=== PATIENT | female | born 1930 | race Caucasian/White ===

== ENCOUNTER → 2016-09-28 | Outpatient (CLI) | payer OTHER | LOC: BHCLAF 15:15 | PROVIDERS: ATTEND Internal Medicine Cardiovascular Disease | DX: I73.9 Peripheral vascular disease, unspecified (principal); I10 Essential (primary) hypertension; E78.5 Hyperlipidemia, unspecified | CPT/HCPCS: 93005-PO ==

== ENCOUNTER → 2016-10-18 | Outpatient (CLI) | payer OTHER | LOC: BHCLAF 14:45 | PROVIDERS: ATTEND Internal Medicine Cardiovascular Disease | DX: I10 Essential (primary) hypertension (principal) | CPT/HCPCS: 93306-PO ==

== ENCOUNTER → 2017-01-05 | Outpatient (CLI) | payer OTHER ==
[~2017-01-05] MED LIST: IOPAMIDOL (ISOVUE-300) 100 ML BTL ONE
== END ==
LOC: CIMAGING 10:19
PROVIDERS: ATTEND Family Medicine
DX: R10.84 Generalized abdominal pain (principal); I25.10 Atherosclerotic heart disease of native coronary artery without angina pectoris; Z85.048 Personal history of other malignant neoplasm of rectum, rectosigmoid junction, and anus; Z85.3 Personal history of malignant neoplasm of breast
CPT/HCPCS: 74177; Q9967

== ENCOUNTER 2017-06-06 | Inpatient (IN) | payer OTHER ==
--- NOTE | 2017-06-06 00:31 | EDPHY ---
H & P Time Seen by Provider: 06/06/17 00:08 HPI/ROS: CHIEF COMPLAINT: Bloody stool just prior to admission HISTORY OF PRESENT ILLNESS: 86-year-old female with prior history of carotid ischemia with a carotid endarterectomy in 2012. At that time she had a normal echocardiogram with a hyperdynamic heart with an ejection fraction of 74% as well as EKG evidence of old prior inferior LA with LVH. Today she felt well, she went to jainism. She did some shopping thereafter. However, at around 3:00 p.m. she started having a sense of some chilling and weakness. She went to have a bowel movement and had to strain a lot. Subsequently after passing some hard stool she noticed a moderate to large amount of liquid stool, though this was nonbloody, nor was there any blood on the tissue. The rest of the evening she felt okay though that somewhat run down. In fact she went to take a nap after the initial bowel movement at 3:00 p.m.. Just an hour prior to admission she went to the bathroom to passing gas or stool , she was not sure. She noted some blood in the stool of a bright red nature. Thus she comes in. At no point has there been any abdominal pain. While she did have some chilling earlier she also noted a sense of lightheadedness both after jainism as well as during the episode of the passage of hard stool and straining. As to the diarrhea, she does not have a history of recent antibiotic use, travel , or prior bacterial dysentery. There has been no bad food or water sources or known exposure. There is some question as to whether she uses magnesium containing material for constipation. Evidently per her daughter she was on MiraLax, once but is no longer. REVIEW OF SYSTEMS: Constitutional: No fever, but she did have some chills Eyes: No discharge No diplopia, no pallor ENT: No sore throat. Cardiovascular: No chest pain, no palpitations. Respiratory: No cough, shortness of breath, or wheezing. Gastrointestinal: No nausea vomiting. No abdominal pain. Genitourinary: No hematuria or frequency. Musculoskeletal: No back pain. Skin: No rashes. Neurological: No headache. 10 point ROS otherwise negative Source: Patient Exam Limitations: No limitations - Medical/Surgical History Hx Asthma: No Hx Chronic Respiratory Disease: Yes Hx Diabetes: No Hx Cardiac Disease: No Hx Renal Disease: No Hx Cirrhosis: No Hx Alcoholism: No Hx HIV/AIDS: No Hx Splenectomy or Spleen Trauma: No Other PMH: HTN, High Chol, GERD, s/p CEA, colon cancer - Family History Significant Family History: No pertinent family hx - Social History Smoking Status: Never smoked Alcohol Use: Other (Former drinker to moderate degree.) Drug Use: None - Physical Exam Exam: General Appearance: Alert, no distress. Afebrile. Normal phonation. No respiratory distress. Vague historian often corrected by her daughter. Eyes: Pupils equal and round no pallor or injection. No icterus ENT, Mouth: Mucous membranes moist Pharynx without erythema or exudate. TM Clear. Neck: No adenopathy. Supple. No JVD. Trachea in midline. Respiratory: There are no retractions, lungs are clear to auscultation. Chest wall: Nontender to palpation. No crepitus. Cardiovascular: Regular rate and rhythm, Gr 2/6 mumur heard at apex. Abdomen: Soft and nontender, no masses, bowel sounds normal. Femoral pulses equal. Neurological: Ox3. No motor weakness. Sensation intact. Gait nl. Romberg's negative. Normal [id number]. No nystagmus. Cranial nerves 2-12 are intact Rectal: There is red flecks of material all over her Depends. There are no signs of external hemorrhoids or tears. Finger returns with the same drea of bloody, pink material as seen on the Depends. Skin: Warm and dry, no rashes. Musculoskeletal: No joint swelling. Extremities: No edema. Homans sign negative. No cords. Psychiatric: Normal affect. Patient is oriented X 3. There is no agitation Constitutional: Initial Vital Signs Temperature (C) 36.8 C 06/06/17 00:07 Heart Rate 56 L 06/06/17 00:07 Respiratory Rate 18 06/06/17 00:07 Blood Pressure 156/82 H 06/06/17 00:07 O2 Sat (%) 96 06/06/17 00:07 O2 Delivery Mode Room Air Allergies/Adverse Reactions: No Known Allergies Allergy (Verified 08/30/12 22:33) Home Medications: Medication Instructions Recorded Aspirin EC [Aspirin EC 81 mg (OTC)] 81 mg PO DAILY 08/25/12 Atorvastatin Calcium [Lipitor 20 20 mg PO DAILY@199908/25/12 mg (RX)] C/E/Zn/Cu/OM3/DHA/EPA/LUT/ZEAX 1 each PO BIDMEAL 08/25/12 [Preservision Areds 2 Softgel] Cholecalciferol Vit D3 [Vitamin D3 1,000 units PO DAILY@1200 08/25/12 1000 units (OTC)] Metoprolol Succinate 100 mg PO DAILY 08/25/12 Omeprazole [Prilosec 20 mg] 20 mg PO DAILY 08/25/12 Pharmacist Completed 08-25-12 08/25/12 Zolpidem Tartrate [Ambien 10 mg] 10 mg PO HS PRN 08/25/12 amLODIPine BESYLATE/BENAZEPRIL 1 each PO DAILY 08/25/12 [Amlodipine-Benazepril 10-20 mg] Azithromycin [Zithromax] 250 mg PO DAILY #4 tab 08/30/12 Ipratropium/Albuterol [Duoneb (RX)] 3 ml IH Q6 PRN #25 deyvial 08/30/12 Medical Decision Making - Diagnostics EKG Interpretation: EKG: Interpreted by me contemporaneously, see trace master for my interpretation. Rhythm: Normal sinus rhythm. Heart rate 58 QTc 504 QRS: LBBB STT segment: normal T Waves: Normal Q waves none Summary: Left bundle-branch block. When compared to old EKG this is new however old EKG is from July 2012. At that time it is noted that she had an evidence of an inferior infarct with LVH Imaging Results: Chest x-ray: Two view chest. Interpreted by me, contemporaneously. Films viewed by me on the PACS system. Normal mediastinum. Normal lung youssef, without pneumonia or without effusions. Normal senescent chest. Imaging: I viewed and interpreted images myself Procedures: Anoscopy: Performed by me. Indication: Diarrhea stool with blood Scope passed, patient tolerated adequately as she has a somewhat tight anal sphincter. No complications Findings: Shows liquid brown/red material coming from above the scope with no signs of external hemorrhoidal or anal irritation to explain the bleeding. ED Course/Re-evaluation: The patient remained hemodynamically stable here. Vital signs are stable Orthostatics stable showing no decrease in blood pressure to standing She had no more stooling well here Abdominal exam remained benign Case was discussed with the hospitalist on-call at [facility]. They requested a call placed to Gastroenterology. I discussed the case with Dr. Kwok regarding the consideration of gastroenterology consult with colonoscopy in the morning Laboratory evaluation reveals: Stable H&H Stable at lytes Elevated BUN compared to baseline. This likely represents dehydration thus patient was started on IV fluids for volume repletion Detectable, though not elevated, troponin Lactic acid normal Chest x-ray showed no signs of pneumonia. EKG showed left bundle branch block without ischemia. NSR. Case discussed with the family, daughter and patient at length regarding infectious versus ischemic colitis Differential Diagnosis: Differential diagnosis includes, but is not limited to: Gastroenteritis, dehydration, diverticulitis, gastritis, mesenteric adenitis, food poisoning, bacterial dysentery, hemorrhoidal bleeding, diverticular bleeding, pneumonia, influenza, ischemic colitis. - Data Points Laboratory Results: Laboratory Results 06/06/17 00:40 06/06/17 00:40 06/06/17 06/06/17 06/06/17 01:00 00:40 00:40 WBC 6.43 10^3/uL 10^3/uL (3.80-9.50) RBC 3.87 10^6/uL L 10^6/uL (4.18-5.33) Hgb 11.6 g/dL L g/dL (12.6-16.3) Hct 34.9 % L % (38.0-47.0) MCV 90.2 fL fL (81.5-99.8) MCH 30.0 pg pg (27.9-34.1) MCHC 33.2 g/dL g/dL (32.4-36.7) RDW 13.2 % % (11.5-15.2) Plt Count 153 10^3/uL 10^3/uL (150-400) MPV 9.5 fL fL (8.7-11.7) Neut % (Auto) 73.2 % % (39.3-74.2) Lymph % (Auto) 17.0 % % (15.0-45.0) [place] % (Auto) 7.8 % % (4.5-13.0) Eos % (Auto) 1.2 % % (0.6-7.6) Baso % (Auto) 0.3 % % (0.3-1.7) Nucleat RBC Rel Count 0.0 % % (0.0-0.2) Absolute Neuts (auto) 4.71 10^3/uL 10^3/uL (1.70-6.50) Absolute Lymphs (auto) 1.09 10^3/uL 10^3/uL (1.00-3.00) Absolute Monos (auto) 0.50 10^3/uL 10^3/uL (0.30-0.80) Absolute Eos (auto) 0.08 10^3/uL 10^3/uL (0.03-0.40) Absolute Basos (auto) 0.02 10^3/uL 10^3/uL (0.02-0.10) Absolute Nucleated RBC 0.00 10^3/uL 10^3/uL (0-0.01) Immature Gran % 0.5 % % (0.0-1.1) Immature Gran # 0.03 10^3/uL 10^3/uL (0.00-0.10) VBG Lactic Acid Sodium 145 mEq/L mEq/L (135-145) Potassium 3.7 mEq/L mEq/L (3.5-5.2) Chloride 104 mEq/L mEq/L (97-110) Carbon Dioxide 24 mEq/l mEq/l (22-31) Anion Gap 17 mEq/L H mEq/L (8-16) BUN 26 mg/dL H mg/dL (7-23) Creatinine 1.0 mg/dL mg/dL (0.6-1.0) Estimated GFR 53 Glucose 94 mg/dL mg/dL (70-100) Calcium 9.3 mg/dL mg/dL (8.5-10.4) Magnesium 2.1 mg/dL mg/dL (1.6-2.3) Troponin I 0.017 ng/mL ng/mL (0.000-0.034) Stool Occult Bld Scrn POSITIVE H (NEGATIVE) 06/06/17 00:40 WBC RBC Hgb Hct MCV MCH MCHC RDW Plt Count MPV Neut % (Auto) Lymph % (Auto) [place] % (Auto) Eos % (Auto) Baso % (Auto) Nucleat RBC Rel Count Absolute Neuts (auto) Absolute Lymphs (auto) Absolute Monos (auto) Absolute Eos (auto) Absolute Basos (auto) Absolute Nucleated RBC Immature Gran % Immature Gran # VBG Lactic Acid 1.3 mmol/L mmol/L (0.7-2.1) Sodium Potassium Chloride Carbon Dioxide Anion Gap BUN Creatinine Estimated GFR Glucose Calcium Magnesium Troponin I Stool Occult Bld Scrn Medications Given: Discontinued Medications Sodium Chloride (Ns) 1,000 mls @ 250 mls/hr IV ONCE ONE PRN Reason: Protocol Stop: 06/06/17 05:22 Last Admin: 06/06/17 01:24 Dose: 1,000 mls Departure - Departure Disposition: [facility] Inpatient Acute Clinical Impression: GI bleeding Qualifiers: GI bleed type/associated pathology: unspecified gastrointestinal hemorrhage type Qualified Code(s): K92.2 - Gastrointestinal hemorrhage, unspecified Diarrhea Qualifiers: Diarrhea type: unspecified type Qualified Code(s): R19.7 - Diarrhea, unspecified Condition: Fair
--- NOTE | 2017-06-06 00:41 | CPEKG ---
Heart Rate: 58 RR Interval: 1034 P-R Interval: 160 QRSD Interval: 138 QT Interval: 512 QTC Interval: 504 P [place]: 58 QRS [place]: -49 T Wave [place]: 86 EKG Severity - ABNORMAL ECG - EKG Impression: SINUS RHYTHM EKG Impression: LEFT BUNDLE BRANCH BLOCK EKG Impression: When compared to old EKG from July of 2012, the left bundle branch is new. On EKG Impression: that old prior EKG there was evidence of old inferior LA as well as left EKG Impression: ventricular hypertrophy Electronically Signed By: Hector Zabala 06-Jun-2017 01:51:19
[2017-06-06 00:57] LABS: PLATELET COUNT 153 10^3/uL (150-400)
[2017-06-06] MEDS ORDERED: NS 1,000 ML IV ONE (01:23)
[2017-06-06] MEDS ORDERED: ACETAMINOPHEN 325 MG TAB PO PRN (01:25)
[2017-06-06] MEDS ORDERED: ONDANSETRON 4 MG/2 ML VIAL IVP PRN (01:25)
[2017-06-06] MEDS ORDERED: ONDANSETRON DISINTEGRATING 4 MG TAB PO PRN (01:25)
[2017-06-06] MEDS ORDERED: NS 1,000 ML IV SCH (01:30)
--- NOTE | 2017-06-06 02:25 | PDGENHP ---
History and Physical - Chief Complaint BRBPR - History of Present Illness 86 yo F w/ hx of carotid stenosis s/p CEA, HTN, colon and breast cancer presents with BRBPR. Patient was in usual state of health until yesterday afternoon when she had a large volume liquid stool. This episode was nonbloody. Then last evening she used the bathroom again and noted a moderate amount of rigo blood so she came to the ED. She denies prior CDiff infection, recent travel, or recent antibiotic use. She does have a prior hx of colon cancer. History Information - Allergies/Home Medication List Allergies/Adverse Reactions: No Known Allergies Allergy (Verified 08/30/12 22:33) Home Medications: Aspirin EC [Aspirin EC 81 mg (OTC)] 81 mg PO DAILY 08/25/12 [Last Taken 08/24/12 ] Atorvastatin Calcium [Lipitor 20 mg (RX)] 20 mg PO DAILY@199908/25/12 [Last Taken 08/24/12] C/E/Zn/Cu/OM3/DHA/EPA/LUT/ZEAX [Preservision Areds 2 Softgel] 1 each PO BIDMEAL 08/25/12 [Last Taken 08/24/12] Cholecalciferol Vit D3 [Vitamin D3 1000 units (OTC)] 1,000 units PO DAILY@1200 08/25/12 [Last Taken 08/24/12] Metoprolol Succinate 100 mg PO DAILY 08/25/12 [Last Taken 08/24/12] Omeprazole [Prilosec 20 mg] 20 mg PO DAILY 08/25/12 [Last Taken 08/24/12] Pharmacist Completed 08-25-12 08/25/12 [Last Taken Unknown] Zolpidem Tartrate [Ambien 10 mg] 10 mg PO HS PRN 08/25/12 [Last Taken 08/24/12] amLODIPine BESYLATE/BENAZEPRIL [Amlodipine-Benazepril 10-20 mg] 1 each PO DAILY 08/25/12 [Last Taken 08/24/12] I have personally reviewed and updated: family history, medical history - Past Medical History cancer (Breast and colon), hypertension - Surgical History Additional surgical history: R CEA - Family History Additional family history: Asked, denies - Social History Smoking Status: Never smoked Alcohol Use: Other (Former drinker to moderate degree.) Drug Use: None Review of Systems Review of Systems: ROS: 10pt was reviewed & negative except for what was stated in HPI & below Physical Exam Physical Exam: Temp Pulse Resp BP Pulse Ox 36.7 C 60 16 151/74 H 95 06/06/17 02:00 18 02:00 06/06/17 02:00 06/06/17 02:00 06/06/17 02:00 Constitutional: no apparent distress, not in pain Eyes: PERRL, EOMI Ears, Nose, Mouth, Throat: moist mucous membranes, no oral mucosal ulcers Cardiovascular: regular rate and rhythym, systolic murmur Respiratory: no respiratory distress, clear to auscultation Gastrointestinal: normoactive bowel sounds, soft, non-tender abdomen Skin: warm, normal color Musculoskeletal: full muscle strength, no muscle tenderness Neurologic: AAOx3, CN II-XII Intact Psychiatric: interacting appropriately, not anxious Lab Data & Imaging Review 06/06/17 00:40 06/06/17 00:40 WBC 6.43 10^3/uL (3.80-9.50) 06/06/17 00:40 RBC 3.87 10^6/uL (4.18-5.33) L 06/06/17 00:40 Hgb 11.6 g/dL (12.6-16.3) L 06/06/17 00:40 Hct 34.9 % (38.0-47.0) L 06/06/17 00:40 MCV 90.2 fL (81.5-99.8) 06/06/17 00:40 MCH 30.0 pg (27.9-34.1) 06/06/17 00:40 MCHC 33.2 g/dL (32.4-36.7) 06/06/17 00:40 RDW 13.2 % (11.5-15.2) 06/06/17 00:40 Plt Count 153 10^3/uL (150-400) 06/06/17 00:40 MPV 9.5 fL (8.7-11.7) 06/06/17 00:40 Neut % (Auto) 73.2 % (39.3-74.2) 06/06/17 00:40 Lymph % (Auto) 17.0 % (15.0-45.0) 06/06/17 00:40 [place] % (Auto) 7.8 % (4.5-13.0) 06/06/17 00:40 Eos % (Auto) 1.2 % (0.6-7.6) 06/06/17 00:40 Baso % (Auto) 0.3 % (0.3-1.7) 06/06/17 00:40 Nucleat RBC Rel Count 0.0 % (0.0-0.2) 06/06/17 00:40 Absolute Neuts (auto) 4.71 10^3/uL (1.70-6.50) 06/06/17 00:40 Absolute Lymphs (auto) 1.09 10^3/uL (1.00-3.00) 06/06/17 00:40 Absolute Monos (auto) 0.50 10^3/uL (0.30-0.80) 06/06/17 00:40 Absolute Eos (auto) 0.08 10^3/uL (0.03-0.40) 06/06/17 00:40 Absolute Basos (auto) 0.02 10^3/uL (0.02-0.10) 06/06/17 00:40 Absolute Nucleated RBC 0.00 10^3/uL (0-0.01) 06/06/17 00:40 Immature Gran % 0.5 % (0.0-1.1) 06/06/17 00:40 Immature Gran # 0.03 10^3/uL (0.00-0.10) 06/06/17 00:40 VBG Lactic Acid 1.3 mmol/L (0.7-2.1) 06/06/17 00:40 Sodium 145 mEq/L (135-145) 06/06/17 00:40 Potassium 3.7 mEq/L (3.5-5.2) 06/06/17 00:40 Chloride 104 mEq/L (97-110) 06/06/17 00:40 Carbon Dioxide 24 mEq/l (22-31) 06/06/17 00:40 Anion Gap 17 mEq/L (8-16) H 06/06/17 00:40 BUN 26 mg/dL (7-23) H 06/06/17 00:40 Creatinine 1.0 mg/dL (0.6-1.0) 06/06/17 00:40 Estimated GFR 53 06/06/17 00:40 Glucose 94 mg/dL (70-100) 06/06/17 00:40 Calcium 9.3 mg/dL (8.5-10.4) 06/06/17 00:40 Magnesium 2.1 mg/dL (1.6-2.3) 06/06/17 00:40 Troponin I 0.017 ng/mL (0.000-0.034) 06/06/17 00:40 Stool Occult Bld Scrn POSITIVE (NEGATIVE) H 06/06/17 01:00 Assessment & Plan Assessment: 86 yo F w/ hx of carotid stenosis s/p R CEA, HTN, as well as breast and colon cancer presents with loose stool and hematochezia. Plan: 1. GIB - Suspect lower etiology noting bright red blood per rectum. Patient is hemodynamically stable with Hgb near her known baseline. She does have a prior hx of colon CA. Abdominal CT in December of 2016 was unremarkable with no mention of mass or diverticulosis. Patient reports normal colonoscopy 2 or 3 years ago performed for colon CA surveillance. - Admit for observation - Monitor CBC - NPO, mIVF - GI consult for possible colonoscopy 2. Loose stool - Had one episode of large volume loose stool prior to admission. She denies recent travel, antibiotic use, or prior hx of C. Diff. - GI PCR panel 3. Hx carotid stenosis - s/p R CEA 4. Hx of colon cancer - Patient thinks this was maybe 15 years ago. She states she received surgery and chemotherapy. 5. Hx of breast cancer - She states this was treated with chemotherapy. 6. HTN - On lisinopril, carvedilol, and amlodipine per Dr. Mathis' progress note last November. Diet - NPO Code - Full Ppx - SCDs Dispo - Admit under observation status
[2017-06-06 06:07] LABS: PLATELET COUNT 138 10^3/uL (150-400)
[2017-06-06] MEDS ORDERED: PEG 3350/NA SULF,BICARB,CL/KCL (GAVILYTE-G) 4000 ML BTL PO ONE (10:05)
--- NOTE | 2017-06-06 10:08 | SOAPPROG ---
DANIE Progress Note Assessment/Plan: Assessment:Plan: full dictation to follow 86 y/o with distant hx rectal cancer, last colon 2013 -- no tics on scopes, few small polyps removed 2012 hard difficult evacuation followed by rectal bleeding , no sig drop in HB, prob distal rectal source - hemorrhoids, mucosal tear she wants scope prior to going home will prep and scope later today or tomorrow 06/06/17 10:06 Objective: Vital Signs Temp Pulse Resp BP Pulse Ox 36.6 C 61 16 171/79 H 91 L 06/06/17 08:00 06/06/17 08:00 06/06/17 08:00 06/06/17 08:00 06/06/17 08:00 Laboratory Results 06/06/17 04:32 06/06/17 04:32 06/05/17 06/06/17 06/07/17 05:59 05:59 05:59 Intake Total 200 Output Total 300 Balance -100 ICD10 Worksheet Patient Problems: Problems Problem Status Onset Diarrhea Acute GI bleeding Acute Transient ischemic attack Active
--- NOTE | 2017-06-06 11:29 | ASMTCMCOM ---
CM Note CM Note Notes: Patient admitted after episode of hematochezia. She has a history of colon cancer. GI will scope later today or tomorrow. Patient lives independently with her and has a supportive daughter. No therapies have been ordered, so I anticipate an independent discharge home. CM available if any needs arise. Current CM Discharge plan: home with family Date Signed: 06/06/2017 11:28 AM Electronically Signed By:Dana Conley RN
--- NOTE | 2017-06-06 17:12 | HOSPPROG ---
Hospitalist Progress Note Assessment/Plan: # GIB - Suspect lower etiology noting bright red blood per rectum. Patient is hemodynamically stable with Hgb near her known baseline. She does have a prior hx of colon CA. Abdominal CT (personally reviewed and interpreted)12/2016 no mass or diverticulosis. - discuss with Gastroenterology they will prep and scoped today - Monitor CBC - NPO, mIVF # Loose stool - Had one episode of large volume loose stool prior to admission. - GI PCR panel # Hx carotid stenosis - s/p R CEA # Hx of colon cancer - Patient thinks this was maybe 15 years ago. She states she received surgery and chemotherapy. # Hx of breast cancer - She states this was treated with chemotherapy. # HTN - holding antihypertensives currently in the setting of GI bleed Diet - NPO Code - Full Ppx - SCDs Dispo - Admit under observation status I have discussed the case with Dr. Kwok from Gastroenterology plan to prep in scope the patient this evening Subjective: With bright red blood per rectum this morning Objective: Vital Signs Temp Pulse Resp BP Pulse Ox 35.9 C L 59 L 16 180/80 H 98 06/06/17 16:07 06/06/17 16:07 06/06/17 16:07 06/06/17 16:07 06/06/17 16:07 Microbiology 06/06/17 11:00 Gastrointestinal Tract Panel (PCR) - Final Stool No Organism Detected Laboratory Results 06/06/17 04:32 06/06/17 04:32 06/05/17 06/06/17 06/07/17 05:59 05:59 05:59 Intake Total 200 1000 Output Total 300 Balance -100 1000 - Physical Exam Constitutional: no apparent distress Eyes: anicteric sclera Ears, Nose, Mouth, Throat: moist mucous membranes Cardiovascular: regular rate and rhythym Respiratory: no respiratory distress Gastrointestinal: normoactive bowel sounds Genitourinary: no bladder fullness Skin: warm Musculoskeletal: No asymmetric calves Neurologic: AAOx3 Psychiatric: interacting appropriately Lymph, Heme, Immunologic: no cervical LAD ICD10 Worksheet Patient Problems: Problems Problem Status Onset Diarrhea Acute GI bleeding Acute Transient ischemic attack Active
[2017-06-06] MEDS ORDERED: MIDAZOLAM 2 MG/2 ML VIAL ONE ×2 (17:34→17:35)
[2017-06-06] MEDS ORDERED: fentaNYL 100 MCG/2 ML INJ ONE (17:35)
[2017-06-06] MEDS ORDERED: EPINEPHrine 1 MG/10 ML SYR IVP ONE (17:44)
--- NOTE | 2017-06-06 17:54 | PDPROPOC ---
Sedation Plan of Care Sedation Plan of Care: vital signs stable, mental status noted, patient educated of risks, benefits, alternatives, patient can tolerate sedation ASA Classification: ASA 2 Planned drugs: fentanyl, midazolam Mallampati Score: Class 2 Mallampati Reference Image: 2 Patient passed 3-3-2 rule?: Yes
--- NOTE | 2017-06-06 18:33 | GIREPORT ---
[facility] Surgical Services - Endoscopy Department Patient Name: Summer De Leon Procedure Date: 06/06/2017 5:23 PM Patient Type: Inpatient Attending MD/ ER Physician: Roc Harmon Procedure: Colonoscopy Indications: Hematochezia, Personal history of malignant rectal neoplasm Providers: Thai Kwok MD Referring MD: Harika Schmitt MD Medicines: Fentanyl 50 micrograms IV, Midazolam 3 mg IV Complications: No immediate complications. Estimated blood loss: Minimal. Description of Procedure: After obtaining informed consent, the scope was passed under direct vis ion. Throughout the procedure, the patient's blood pressure, pulse, and oxyg en saturations were monitored continuously. The Colonoscope with irrigatio n channel was introduced through the anus and advanced to the terminal il eum, with identification of the appendiceal orifice and IC valve. The colono scopy was performed without difficulty. The patient tolerated the procedure w ell. The quality of the bowel preparation was good. Findings: The digital rectal exam was normal. The terminal ileum appeared normal. A 5 mm polyp was found in the cecum. The polyp was semi-sessile. The po lyp was removed with a cold snare. Resection and retrieval were complete. Estimated blood loss was minimal. A scattered and segmental area of moderately altered vascular, congeste d, erythematous, eroded, inflamed and ulcerated mucosa was found in the si gmoid colon and in the descending colon. Biopsies were taken with a cold [facility] eps for histology. Estimated blood loss was minimal. The exam was otherwise without abnormality. Estimated Blood Loss: Estimated blood loss was minimal. Post Op Diagnosis: - The examined portion of the ileum was normal. - One 5 mm polyp in the cecum, removed with a cold snare. Resected and retrieved. - Altered vascular, congested, erythematous, eroded, inflamed and ulcer ated mucosa in the sigmoid colon and in the descending colon. Biopsied. Quer y ischemia which should resolve 2100% without intervention. - The examination was otherwise normal. Recommendation: - Await pathology results. - My office will call with the pathology result with 5-7 days. If you h ave not heard from my office by 12-14, do not assume the pathology is morteza l, please call [phone] to get the pathology results. - No repeat colonoscopy due to age. Wouldn't be due until age 89. - Resume regular diet. - Continue present medications. - Patient has a contact number available for emergencies. The signs and symptoms of potential delayed complications were discussed with the pat ient. Return to normal activities tomorrow. Written discharge instructions we re provided to the patient. - [facility] to [facility] for [facility] care. Probable discharge home in am Attending Participation: I personally performed the entire procedure. Rissa Andre M.D Thai Kwok MD 06/06/2017 6:33:24 PM This report has been signed electronicallyMathew MD Rissa Number of Addenda: 0 Note Initiated On: 06/06/2017 5:23 PM Total Procedure Duration Time 0 hours 18 minutes 2 seconds [email or web address]
--- NOTE | 2017-06-06 18:43 | POSTOPPROG ---
Post Op Note Date of Operation: 06/06/17 Surgeon: Adriel Kwok Anesthesia: IV Sedation (versed 3mg IV and fentanyl 50 mcg iv) Pre-op Diagnosis: hematocheiza Post-op Diagnosis: 5mm cecal polyp, colitis in left colon, query ischemia Indication: hematochezia Procedure: colon with bx and snare Findings: 5mm cecal polyp, colitis left colon, no mass Inf/Abcess present in the surg proc area at time of surgery?: No EBL: Minimal (few ml from cold bx and snare) Total fluids administered: 200ml NS Complications: none immediate
--- NOTE | 2017-06-06 20:44 | GCON ---
[f rep st] CONSULTATION REFERRING PHYSICIAN: Gaurav Tyler MD INDICATION FOR CONSULTATION: Rectal bleeding. HISTORY OF PRESENT ILLNESS: Summer is a pleasant, 86-year-old female who has a past medical history significant for rectal cancer status post transanal resection back in the mid with no recurrence since then. Her last colonoscopy I believe was in 2012 when they had small adenomas removed. She did not have any diverticulosis noted on any of her colonoscopies. She was in the usual state of health yesterday when she had a significant episode of constipation with a very hard, large stool to evacuate. After passing that school, her next bowel movement was just rigo blood. She has had a few episodes of a small amount of hematochezia since that episode of rigo blood. She came to the emergency room for evaluation and was noted to have a mildly decreased hemoglobin and hematocrit over her baseline, but not significantly so and was admitted for the above. She did not complain of any fevers, chills, sweats. She did not have any diarrhea prior to this event. She has had no recent travel or antibiotic use. She does have a distant history of colon cancer as noted above and colonoscopy approximately about 5 years ago. PAST MEDICAL HISTORY: Hypertension, hypercholesterolemia, history of breast cancer status post resection, history of rectal cancer status post transanal resection. PAST SURGICAL HISTORY: Besides the right breast mastectomy, the transanal resection. She also had a right carotid endarterectomy. Likely had a cholecystectomy based on CT scan. MEDICATIONS: Aspirin EC [Aspirin EC 81 mg (OTC)] 81 mg PO DAILY 08/25/12 [Last Taken 08/24/12 ] Atorvastatin Calcium [Lipitor 20 mg (RX)] 20 mg PO DAILY@199908/25/12 [Last Taken 08/24/12] C/E/Zn/Cu/OM3/DHA/EPA/LUT/ZEAX [Preservision Areds 2 Softgel] 1 each PO BIDMEAL 08/25/12 [Last Taken 08/24/12] Cholecalciferol Vit D3 [Vitamin D3 1000 units (OTC)] 1,000 units PO DAILY@1200 08/25/12 [Last Taken 08/24/12] Metoprolol Succinate 100 mg PO DAILY 08/25/12 [Last Taken 08/24/12] Omeprazole [Prilosec 20 mg] 20 mg PO DAILY 08/25/12 [Last Taken 08/24/12] Pharmacist Completed 08-25-12 08/25/12 [Last Taken Unknown] Zolpidem Tartrate [Ambien 10 mg] 10 mg PO HS PRN 08/25/12 [Last Taken 08/24/12] amLODIPine BESYLATE/BENAZEPRIL [Amlodipine-Benazepril 10-20 mg] 1 each PO DAILY 08/25/12 [Last Taken 08/24/12] ALLERGIES: NKDA FAMILY HISTORY: A sister had rectal cancer as well. SOCIAL HISTORY: She never smoked. She drinks alcohol infrequently currently. Historically, she was a social moderate drinker. REVIEW OF SYSTEMS: A complete review of systems was performed and negative other than noted in the HPI. PHYSICAL EXAM: GENERAL: Well-developed, well-nourished, elderly female sitting in her bed in no acute distress. VITAL SIGNS: Blood pressure 171/79, pulse 61, respirations 16, air, ranging from 91% to 98% on room air, temperature 36.6. HEENT: Eyes: Anicteric SALINA, EOMI. Mouth: No lesions. Moist membranes. NECK: Supple. Full range of motion. No JVD. BACK: No spine tenderness. No CVA tenderness. LUNGS: Clear. CARDIAC: S1, S2. Regular rate and rhythm. No murmurs, rubs, or gallops appreciated. ABDOMEN: Bowel sounds are normal in pitch and frequency. Abdomen is soft and nontender. No hepatosplenomegaly. EXTREMITIES: No cyanosis, clubbing, or edema. NEUROLOGIC: Cranial nerves intact, nonfocal. SKIN: No stigmata of advanced liver disease. No rashes. LABORATORY DATA: From December 28, 2016: Hemoglobin 11.7. From June 06, 2017 , hemoglobin 11.6, hematocrit 34.9, platelet count is 153, WBC 6.43. On repeat , the hemoglobin dropped from 11.6 to 11.1. From today, sodium 145, potassium 3.4, chloride 109, bicarb 22, BUN 22, creatinine 0.8, calcium 8.7. November 2016 , she had normal liver enzymes. Abdominal CT scan performed January 05, 2017, previous cholecystectomy, hysterectomy, and probable appendectomy. No significant abnormality within the pelvis or abdomen. ASSESSMENT: 1. Episode of hematochezia likely related to rupture of vessel or tearing of mucosa from hard stool with no significant decrease in hemoglobin and hematocrit over laboratory data from a number of months ago. 2. Distant history of rectal cancer status post transanal resection with last colonoscopy 5 years ago. 3. No evidence of diverticulosis on CT scan nor on colonoscopies. RECOMMENDATIONS: 1. After discussion with the patient whether she would like to have a colonoscopy as an inpatient or outpatient, she would rather have it done as an inpatient. Therefore, we will prep her for a colonoscopy either later today or early tomorrow. 2. Patient decided as an outpatient, we can discharge her and prep her as an outpatient as well. 3. Clear liquid diet pending prep, then n.p.o. until after procedure. 4. Treatment of her other medical issues as per hospitalist and primary care. Thank you very much for allowing me to participate in the patient's healthcare. Do not hesitate to call me with any questions. Copy requested to: Dr. Harika Mckinley /[id number]/MODL MTDD
[2017-06-07 07:11] VITALS: BP 155/77; PULSE 65; RESP 16; TEMP 99.3; O2SAT 96
[2017-06-07] MEDS ORDERED: CARBOXYMETHYLCELLULOSE 1% 0.4 ML DROPERETTE EACHEYE PRN (08:17)
[2017-06-07] MEDS ORDERED: amLODIPine BESYLATE 5 MG TAB PO SCH (09:00)
--- NOTE | 2017-06-07 11:06 | ASDISCHSUM ---
Discharge Information Plan Status:Home with No Needs Medically Cleared to Leave: Discharge Date:06/07/2017 10:50 AM CM D/C Disposition:Home, Routine, Self-Care ADT D/C Disposition:Home, Routine, Self-Care Projected Discharge Date:06/07/2017 10:50 AM Transportation at D/C: Discharge Delay Reason: Follow-Up Date:06/07/2017 10:50 AM Discharge Slot: Final Diagnosis: Placement Information Patient Contact Information Contact Name:WENDY Relationship: [address] Phone: City:[facility] Phone: [facility]/Zip Code:[place] [address] Email: Financial Information Financial Class: Primary Plan Desc:MEDICARE OUTPATIENT Primary Plan Number:[id number] Secondary Plan Desc:[facility] Secondary Plan Number:[id number] Assessment Information [facility] CM Progress Note CM Note CM Note Notes: Patient admitted after episode of hematochezia. She has a history of colon cancer. GI will scope later today or tomorrow. Patient lives independently with her and has a supportive daughter. No therapies have been ordered, so I anticipate an independent discharge home. CM available if any needs arise. Current CM Discharge plan: home with family Date Signed: 06/06/2017 11:28 AM Electronically Signed By:Dana Conley RN Intervention Information Intervention Type:*PHAN-Signed Date of Service:06/06/2017 11:04 AM Patient Type:Observation Staff Member:Chelsea Spencer Hours: Discipline: Severity: Comment:
[2017-06-07] MEDS ORDERED: CHOLECALCIFEROL VIT D3 1,000 UNITS TAB PO SCH (12:00)
--- NOTE | 2017-06-07 14:12 | PDMN ---
Medical Necessity Medical necessity: Change to IP, as of 06/06/17, per MD; los >2 mn for ongoing management of GI bleed; admit for further monitoring, GI consult, possible colonoscopy & IVFs; hx colon cancer, breast cancer, carotid stenosis & HTN; per progress note & order 06/06/17
[2017-06-07] MEDS ORDERED: PRESERVISION AREDS2 FORMULA EYE VIT 1 EACH PO SCH (18:00)
[2017-06-07] MEDS ORDERED: ATORVASTATIN CALCIUM 20 MG TAB PO SCH (20:00)
--- NOTE | 2017-06-07 22:23 | GDS ---
[f rep st] DISCHARGE SUMMARY DISCHARGE DIAGNOSIS: Acute lower gastrointestinal bleed secondary to presumed ischemic colitis. HISTORY OF PRESENT ILLNESS: An 86-year-old female, who presented with active blood clots being passe d per rectum. For details of patient's initial presentation, please see the history and physical yash ed 06/06/2017. CONSULTATIVE SERVICES: Gastroenterology. PROCEDURES: On 06/06/2017, patient underwent colonoscopy which showed changes consistent with likely ischemic colitis. HOSPITAL COURSE: Acute lower gastrointestinal bleed. Patient did have a history of colon cancer and was due for screening colonoscopy. There were some concerns that her presentation may be from [facility]. Patient was prepped for colonoscopy and underwent imaging, which showed findings most con sistent with possible ischemic colitis. The patient's H and H remained stable overnight. Hemodynami cs remained stable overnight. She was re-initiated on a regular diet by Gastroenterology the evening of 06/06/2017, and tolerated this without complication. She had minimal passage of blood the follow ing morning, and therefore felt to be safe for disposition more quickly than initially assumed on hos pitalization. Patient's vital signs remained stable. She tolerated normal breakfast and was safe fo r disposition home. She has been instructed to follow with her outpatient primary care provider, as well as outpatient [facility]ology for followup post disposition. We have additionally asked that she hold her aspirin d aily until she stops passing bright red blood per rectum. Once she has had a 24-hour period without blood,a she is safe to resume her normal 81 mg aspirin. MEDICATIONS AT THE TIME OF TRANSFER: Please reference the med rec printed on 06/07/2017. FOLLOWUP APPOINTMENTS: Include: 1. With her PCP. 2. With Gastroenterology outpatient. PENDING STUDIES: At the time of this dictation none. BILLING: I spent greater than 30 minutes in the planning and coordination of this discharge. /[id number]/MODL
== END 2017-06-07 10:50 | disposition home or self-care (01) | DRG 395 ==
LOC: CED → CEDHOLD 01:26 → F3N 03:12 → OBSVTOIN 17:11
PROVIDERS: ADMIT Student in an Organized Health Care Education/Training Program; ATTEND Hospitalist
PROC: 0DBN8ZX Excision of Sigmoid Colon, Via Natural or Artificial Opening Endoscopic, Diagnostic (ICD-10-PCS; principal; 2017-06-06 18:00)
PROC: 0DBH8ZX Excision of Cecum, Via Natural or Artificial Opening Endoscopic, Diagnostic (ICD-10-PCS; principal; 2017-06-06 18:00)
PROC: 0DJD8ZZ Inspection of Lower Intestinal Tract, Via Natural or Artificial Opening Endoscopic (ICD-10-PCS; principal; 2017-06-06 18:00)
PROC: 0DBM8ZX Excision of Descending Colon, Via Natural or Artificial Opening Endoscopic, Diagnostic (ICD-10-PCS; principal; 2017-06-06 18:00)
DX: K55.031 Focal (segmental) acute (reversible) ischemia of large intestine (principal); D12.0 Benign neoplasm of cecum; I10 Essential (primary) hypertension; E78.00 Pure hypercholesterolemia, unspecified; K21.9 Gastro-esophageal reflux disease without esophagitis; Z85.3 Personal history of malignant neoplasm of breast; Z85.038 Personal history of other malignant neoplasm of large intestine
CPT/HCPCS: 71046-PO; 80048-PO; 82270-PO; 83605-PO; 83735-PO; 84484-PO; 85025-PO; J2250; J3010